=== PATIENT | female | born 1955 | race Caucasian/White ===

== ENCOUNTER 2020-12-16 11:02 | Outpatient (CLI) | payer MEDICARE ==
--- NOTE | 2020-12-16 11:17 | RAD ---
Exam:Left wrist 3 HISTORY: Fall. Pain. COMPARISON: None FINDINGS: Internal fixation hardware along the distal radius is noted. No evidence of a fracture. Int ercarpal and radiocarpal joint spaces are preserved. No evidence of a carpal bone injury. IMPRESSION: No fracture.
== END 2020-12-16 11:03 | disposition home or self-care (01) ==
LOC: MADRAD 11:02
PROVIDERS: ATTEND Family Medicine
DX: M25.532 Pain in left wrist (principal)